=== PATIENT | male | born 1955 ===

== ENCOUNTER 2018-08-11 07:56 | Outpatient (CLI) | payer OTHER | END 2018-08-11 07:59 | disposition home or self-care (01) | LOC: RX STUDY 07:56 | DX: R13.19 Other dysphagia (principal) ==

== ENCOUNTER 2021-02-14 08:00 | Outpatient (CLI) | payer OTHER | END 2021-02-14 08:12 | disposition home or self-care (01) | LOC: RX STUDY 08:00 | PROVIDERS: ATTEND Internal Medicine Gastroenterology | DX: K44.9 Diaphragmatic hernia without obstruction or gangrene (principal); K21.9 Gastro-esophageal reflux disease without esophagitis; K21.00 Gastro-esophageal reflux disease with esophagitis, without bleeding ==